=== PATIENT | male | born 1930 | race Caucasian/White ===

== ENCOUNTER 2016-05-27 22:55 | Emergency (ER) | payer MEDICARE ==
[~2016-05-27] VITALS: Ht 167.6 cm; Wt 75.9 kg
[~2016-05-27 22:55] MED LIST: LASIX 20MG TABL20 MG PO; LEVOXYL0.1 MG PO; METHADONE H10 MG/TAB PO; MIRTAZAPINE7.5 MG PO; NITROSTAT0.4 MG/TAB SL; NORMODYNE200 MG PO; NORVASC 5MG5 MG/TAB PO; PLAVIX 75MG TAB75 MG PO; PROTONIX 40MG T40 MG PO; ZOFRAN ODT4 MG PO
[2016-05-27 23:18] LABS: BASO % 0.4 % (0.0-2.0); EOS # 0.5 (0.0-0.7); EOS % 6.8 % (0-4.0); GRAN # 3.7 (1.4-6.5); GRAN % 52.6 % (42.2-75.2); HEMATOCRIT 36.2 % (42.0-52.0); HEMOGLOBIN 12.2 g/dl (13.5-18.0); LYMPH # 2.1 (1.2-3.4); LYMPH % 29.4 % (20.0-51.0); MEAN CELL VOLUME 89 fl (80.0-100.0); MEAN CORPUSCULAR HEMOGLOBIN 30 pg (27.0-31.0); MEAN CORPUSCULAR HGB CONC 34 g/dl (33.0-37.0); MEAN PLATELET VOLUME 9.3 fl (7.4-10.4); MONO # 0.7 (0.1-0.6); MONO % 10.2 % (1.7-9.3); PLATELET COUNT 237 K/mm3 (130-400); RED BLOOD COUNT 4.07 M/mm3 (4.20-5.60); WHITE BLOOD COUNT 7.1 K/mm3 (4.8-10.8)
[2016-05-27 23:22] LABS: INR 1.1 (0.8-3.0); PROTHROMBIN TIME 11.8 SECONDS (9.7-12.8)
[2016-05-27 23:24] LABS: PARTIAL THROMBOPLASTIN TIME 28.1 SECONDS (26.0-37.0)
[2016-05-27 23:29] LABS: ADJUSTED CALCIUM 9.4 mg/dL (8.4-10.2); ALBUMIN 3.7 gm/dL (3.5-5.0); BILIRUBIN,TOTAL 0.8 mg/dL (0.0-1.0); CALCIUM 9.2 mg/dL (8.4-10.2); CREATININE, serum 1.76 mg/dL (0.66-1.25); TOTAL PROTEIN 6.9 gm/dL (6.4-8.2)
[2016-05-27 23:42] LABS: TROPONIN-I 0.068 ng/mL (0.000-0.034)
[2016-05-28 00:01] VITALS: BP 80/48; PULSE 41
== END 2016-05-28 00:10 | disposition short-term general hospital (02) ==
LOC: COL.ER 22:55
PROVIDERS: Emergency Medicine
DX: I21.19 ST elevation (STEMI) myocardial infarction involving other coronary artery of inferior wall (principal); I10 Essential (primary) hypertension; F17.210 Nicotine dependence, cigarettes, uncomplicated; I25.2 Old myocardial infarction; I25.10 Atherosclerotic heart disease of native coronary artery without angina pectoris
CPT/HCPCS: J0461; J1644; J2270; J2765; J3101; J7030; J7060